=== PATIENT | male | born 1980 | race African-American/Black ===

== ENCOUNTER 2023-07-05 16:19 | Emergency (ER) | payer OTHER ==
[~2023-07-05] VITALS: Ht 177.8 cm; Wt 102.0 kg
[2023-07-05 16:38] VITALS: BP 202/124; PULSE 92; RESP 16; TEMP 98.7; O2SAT 100
[2023-07-05] MEDS ORDERED: NAPR-681 MT (17:31)
== END 2023-07-05 19:06 | disposition home or self-care (01) ==
LOC: ER 16:19
DX: M25.571 Pain in right ankle and joints of right foot (principal); I12.0 Hypertensive chronic kidney disease with stage 5 chronic kidney disease or end stage renal disease; N18.6 End stage renal disease; Z99.2 Dependence on renal dialysis; Z98.890 Other specified postprocedural states
CPT/HCPCS: 73610; 73630; 99284; Z7610